=== PATIENT | female | born 1995 | race Caucasian/White ===

== ENCOUNTER 2019-12-06 21:32 | Emergency (ER) | payer SELFPAY ==
[~2019-12-06] VITALS: Ht 180.3 cm; Wt 160.6 kg
[2019-12-06 21:40] VITALS: Ht 180.3 cm; Wt 160.6 kg
[2019-12-07 01:31] VITALS: BP 115/75
== END 2019-12-07 01:28 | disposition home or self-care (01) ==
LOC: ED 21:32
DX: H16.9 Unspecified keratitis (principal)